=== PATIENT | female | born 1965 | race Caucasian/White ===

== ENCOUNTER 2017-06-21 01:47 | Inpatient (IN) | payer OTHER ==
[~2017-06-21] VITALS: Ht 157.5 cm; Wt 73.0 kg
[~2017-06-21 01:47] MED LIST: LEVO25TA2 PO; NO MEDS TAKEN; SIMV10TA6 PO
[2017-06-21 02:22] LABS: EOSINOPHILS % 2.7 % (0.0-5.0); HEMATOCRIT. 41.2 % (36.0-48.0); HEMOGLOBIN. 14.1 g/dL (12.0-16.0); LYMPHOCYTES % 34.7 % (20.0-50.0); MEAN CORPUSCULAR HEMOGLOBIN 26.8 pg (28.0-32.0); MEAN CORPUSCULAR VOLUME 78.8 fL (81.0-99.0); MEAN PLATELET VOLUME 10.5 fl (7.4-10.4); MONOCYTES % 8.1 % (2.0-8.0); NEUTROPHILS % 53.5 % (40.0-76.0); PLATELET 175 x1000/uL (130-400); RED BLOOD CELL COUNT 5.24 mill/uL (4.2-5.4); RED CELL DISTRIBUTION WIDTH 14.5 % (11.6-14.6)
[2017-06-21 02:33] LABS: CHLORIDE 111 mEq/L (98-107); LDL CHOLESTEROL 132 mg/dL (5-100); TROPONIN I < 0.02 ng/mL (0.00-0.04)
[2017-06-21] MEDS ORDERED: SODIUM CHLORIDE 0.9% 1,000 ML IV SCH (03:40)
[2017-06-21] MEDS ORDERED: ASPIRIN 325MG TABLET PO ONE (03:45)
[2017-06-21] MEDS ORDERED: SODIUM CHLORIDE 0.45% 1,000 ML IV SCH (06:59)
[2017-06-21] MEDS ORDERED: MORPHINE SULFATE 2 MG/ML CPJ (NOT FOR IM USE) IV PRN (07:00)
[2017-06-21] MEDS ORDERED: CLONIDINE 0.1MG TABLET PO PRN (07:00)
[2017-06-21] MEDS ORDERED: ACETAMINOPHEN 325MG TABLET PO PRN (07:00)
[2017-06-21] MEDS ORDERED: HYDROCODONE/ACETAMINOPHEN 5/325MG TABLET PO PRN (07:00)
[2017-06-21] MEDS ORDERED: ONDANSETRON HCL 4MG/2ML VIAL IV PRN (07:00)
[2017-06-21] MEDS ORDERED: NA PHOS,M-B/NA PHOS,DI-BA ENEMA 118ML PR PRN (07:00)
[2017-06-21] MEDS ORDERED: DIPHENHYDRAMINE 50MG/ML VIAL IV PRN (07:00)
[2017-06-21] MEDS ORDERED: GUAIFENESIN 200MG/10ML SUGAR FREE UDC PO PRN (07:00)
[2017-06-21] MEDS ORDERED: LORAZEPAM 2MG/ML CPJ IV PRN (07:00)
[2017-06-21] MEDS ORDERED: IPRATROPIUM/ALBUTEROL 0.5-3(2.5)MG/3ML NEB INH PRN (07:00)
[2017-06-21] MEDS ORDERED: DOCUSATE SODIUM 100MG CAPSULE PO PRN (07:00)
[2017-06-21] MEDS ORDERED: MAGNESIUM/ALUMINUM HYDROXIDE/SIMETHICONE 30ML UDC PO PRN (07:00)
[2017-06-21 07:31] LABS: CHLORIDE 114 mEq/L (98-107)
[2017-06-21] MEDS: ENOXAPARIN 40MG/0.4ML SYR SUBCUT SCH (07:55)
[2017-06-21 08:00] VITALS: BP 184/77
[2017-06-21] MEDS ORDERED: BUSP30TA2 PO (09:20)
[2017-06-21 09:28] VITALS: BP 184/77
[2017-06-21] MEDS ORDERED: INFLUENZA VIRUS VACCINE 0.5ML SYR IM ONE (10:00)
[2017-06-21 12:00] VITALS: BP 134/63
[2017-06-21 16:00] VITALS: BP 110/52
[2017-06-21] MEDS: BUSPIRONE HCL 5MG TABLET PO SCH (16:45)
[2017-06-21 16:46] LABS: CREATINE KINASE 79 IU/L (26-192); CREATINE KINASE MB FRACTION 1.3 ng/mL (0.5-3.6); TROPONIN I < 0.02 ng/mL (0.00-0.04)
[2017-06-21] MEDS ORDERED: BUSPIRONE HCL 7.5 MG PO SCH (17:00)
[2017-06-21 20:00] VITALS: BP 135/55
[2017-06-21 23:33] LABS: CREATINE KINASE 70 IU/L (26-192); TROPONIN I < 0.02 ng/mL (0.00-0.04)
[2017-06-22] VITALS: BP 133/59
[2017-06-22 04:00] VITALS: BP 120/51
[2017-06-22 06:11] LABS: BASOPHILS % 0.3 % (0.0-2.0); EOSINOPHILS % 2.1 % (0.0-5.0); HEMOGLOBIN. 13.2 g/dL (12.0-16.0); LYMPHOCYTES % 24.4 % (20.0-50.0); MEAN CORPUSCULAR VOLUME 79.9 fL (81.0-99.0); MEAN PLATELET VOLUME 10.7 fl (7.4-10.4); MONOCYTES % 5.8 % (2.0-8.0); NEUTROPHILS % 67.4 % (40.0-76.0); PLATELET 148 x1000/uL (130-400); RED BLOOD CELL COUNT 4.88 mill/uL (4.2-5.4); RED CELL DISTRIBUTION WIDTH 14.5 % (11.6-14.6)
[2017-06-22 07:56] VITALS: BP 117/67
[2017-06-22 08:05] LABS: CHLORIDE 108 mEq/L (98-107); CREATINE KINASE 66 IU/L (26-192); CREATINE KINASE MB FRACTION 0.8 ng/mL (0.5-3.6); HDL CHOLESTEROL 55 mg/dL (40-59); LDL CHOLESTEROL 127 mg/dL (5-100)
[2017-06-22 08:19] LABS: T4 FREE 0.91 ng/dL (0.76-1.46)
[2017-06-22] MEDS ORDERED: ASPIRIN 81MG EC TABLET PO SCH (09:00)
[2017-06-22] MEDS ORDERED: ASPIRIN 81MG TABLET PO SCH (09:00)
[2017-06-22] MEDS: ENOXAPARIN 40MG/0.4ML SYR SUBCUT SCH (09:32)
[2017-06-22] MEDS: BUSPIRONE HCL 5MG TABLET PO SCH (09:33)
[2017-06-22 11:44] VITALS: BP 117/67
[2017-06-22 12:19] VITALS: BP 121/61
== END 2017-06-22 13:13 | disposition home or self-care (01) | DRG 69 ==
LOC: ER 01:47 → ENRESERV 07:47 → 5WST 08:19
PROVIDERS: ADMIT Internal Medicine; ATTEND Internal Medicine
DX: G45.9 Transient cerebral ischemic attack, unspecified (principal); E78.5 Hyperlipidemia, unspecified; F41.9 Anxiety disorder, unspecified; I10 Essential (primary) hypertension; Z79.899 Other long term (current) drug therapy; Z86.73 Personal history of transient ischemic attack (TIA), and cerebral infarction without residual deficits
CPT/HCPCS: 36415; 70450; 71045; 80048; 80053; 80061; 82550; 82553; 83036; 83721; 83880; 84439; 84443; 84484; 85025; 85379; 90686; 93005; 93306; 93880; 96365; 96366; 97162; 97165; 99291; J1650; J7030